=== PATIENT | female | born 1950 ===

== ENCOUNTER → 2021-05-27 | Outpatient (CLI) | payer MEDICARE | END | disposition home or self-care (01) | LOC: Rad HDHVI 10:55 | PROVIDERS: ATTEND Internal Medicine Cardiovascular Disease | DX: M47.816 Spondylosis without myelopathy or radiculopathy, lumbar region (principal); M41.86 Other forms of scoliosis, lumbar region; M51.26 Other intervertebral disc displacement, lumbar region; M48.061 Spinal stenosis, lumbar region without neurogenic claudication; I70.8 Atherosclerosis of other arteries; N28.1 Cyst of kidney, acquired | CPT/HCPCS: 72131 ==

== ENCOUNTER → 2021-06-17 | Outpatient (CLI) | payer MEDICARE ==
[~2021-06-17] VITALS: Ht 154.9 cm; Wt 51.3 kg
== END | disposition home or self-care (01) ==
LOC: Rad HDHVI 13:31
PROVIDERS: ATTEND Internal Medicine Cardiovascular Disease
DX: I34.1 Nonrheumatic mitral (valve) prolapse (principal); I73.9 Peripheral vascular disease, unspecified; I10 Essential (primary) hypertension; E78.5 Hyperlipidemia, unspecified; R07.89 Other chest pain; Z72.0 Tobacco use
CPT/HCPCS: 78452; 93017; 96374; A9500

== ENCOUNTER → 2023-02-02 | Outpatient (CLI) | payer MEDICARE | END | disposition home or self-care (01) | LOC: Rad HDHVI 08:02 | PROVIDERS: ATTEND Internal Medicine Cardiovascular Disease | DX: I10 Essential (primary) hypertension (principal); E78.5 Hyperlipidemia, unspecified | CPT/HCPCS: 93306 ==

== ENCOUNTER → 2023-02-09 | Outpatient (CLI) | payer MEDICARE ==
[~2023-02-09] VITALS: Ht 154.9 cm; Wt 51.3 kg
[~2023-02-09] MED LIST: ADENOSINE 43 MG in GIVE UN-DILUTED 0 ML IV ONE; ADENOSINE 90 MG/30 ML INJ IV ONE
== END | disposition home or self-care (01) ==
LOC: Rad HDHVI 08:04
PROVIDERS: ATTEND Internal Medicine Cardiovascular Disease
DX: I08.1 Rheumatic disorders of both mitral and tricuspid valves (principal); I10 Essential (primary) hypertension; J44.9 Chronic obstructive pulmonary disease, unspecified; E78.5 Hyperlipidemia, unspecified; F17.200 Nicotine dependence, unspecified, uncomplicated
CPT/HCPCS: 78452; 93005; 96374; 96375; A9500; J0153

== ENCOUNTER → 2023-12-16 | Outpatient (CLI) | payer MEDICARE | END | disposition home or self-care (01) | LOC: Rad HDHVI 13:29 | PROVIDERS: ATTEND Internal Medicine Cardiovascular Disease | DX: I10 Essential (primary) hypertension (principal) | CPT/HCPCS: 93880 ==

== ENCOUNTER → 2023-12-29 | Outpatient (CLI) | payer MEDICARE | END | disposition home or self-care (01) | LOC: Rad HDHVI 13:01 | PROVIDERS: ATTEND Internal Medicine Cardiovascular Disease | DX: R00.1 Bradycardia, unspecified (principal); R00.2 Palpitations | CPT/HCPCS: 93306 ==

== ENCOUNTER → 2024-05-02 | Outpatient (CLI) | payer MEDICARE ==
--- NOTE | 2024-05-02 13:21 | DVH ---
XY CHEST TWO VIEWS ROUTINE CLINICAL HISTORY: SOB COMPARISON: None TECHNIQUE: Frontal and lateral view of the chest was obtained FINDINGS: Lines and Tubes: None Lungs: No focal consolidation. Pleura: No effusion. No pneumothorax. Cardiomediastinal contours: Unremarkable Bones: No acute osseous abnormality. IMPRESSION: No acute cardiopulmonary disease.
== END | disposition home or self-care (01) ==
LOC: Rad HDHVI 10:37
PROVIDERS: ATTEND Internal Medicine Cardiovascular Disease
DX: R06.02 Shortness of breath (principal)
CPT/HCPCS: 71046

== ENCOUNTER 2024-12-26 13:56 | Outpatient (CLI) | payer MEDICARE ==
--- NOTE | 2024-12-27 12:45 | DVHSR ---
APPROVED REPORT EXAM: Two-dimensional and M-mode echocardiogram with Doppler and color Doppler. DIMENSIONS LVDd 4.1 (3.8-5.7cm) LA (2D) 2.8 (1.9-4.0cm) Aortic Root 3.3 (2.0-3.7cm) LVDs 2.6 (2.5-4.0cm) LA (MM) (1.9-4.0cm) Aortic Cusp Exc 1.8 (1.5-2.0cm) EF (%) 67.0 (55-70%) Rt. Atrium 3.3 (1.9-4.0cm) Asc. Aorta cm Mitral Valve Mitral Mitral Stenosis E wave 0.65m/s MV Mean GR. mmHg A wave 0.66m/s MV Peak GR. mmHg E/A ratio 1.0 2D MVA cm2 DECEL Time 217ms PRESS 1/2 Time 53ms IVRT ms Dop MVA 4.15cm2 Aortic Valve Aortic Valve Aortic Stenosis V1 1.12m/s AO Mean GR. 3mmHg V2 1.34m/s AO Peak GR. 7mmHg LVOT Diameter 1.7 (1.8-2.4cm) Doppler FABIÁN 1.90cm2 LEFT VENTRICLE The left ventricle is normal size. The left ventricle is normal in structure and function. The Ejection Fraction is within normal limits. The Ejection Fraction is 60-65%. RIGHT VENTRICLE The right ventricle is normal size. ATRIA The left atrial size is normal. The right atrium size is normal. The interatrial septum is intact with no evidence for an atrial septal defect. MITRAL VALVE The mitral valve is normal in structure and function. There is no mitral valve regurgitation noted. PULMONIC VALVE The pulmonic valve is not well visualized. There is mild pulmonic valvular regurgitation. TRICUSPID VALVE The tricuspid valve is grossly normal. AORTIC VALVE The aortic valve opens well. No aortic regurgitation is present. GREAT VESSELS The aortic root is normal size. PERICARDIAL EFFUSION There is no pericardial effusion. Conclusion MILD PI EF >55%
== END 2024-12-27 17:00 | disposition home or self-care (01) ==
LOC: Rad HDHVI 13:56
PROVIDERS: ATTEND Internal Medicine Cardiovascular Disease
DX: I37.1 Nonrheumatic pulmonary valve insufficiency (principal); R07.89 Other chest pain; E78.5 Hyperlipidemia, unspecified
CPT/HCPCS: 93306

== ENCOUNTER 2025-01-02 13:47 | Outpatient (CLI) | payer MEDICARE ==
[~2025-01-02] VITALS: Ht 154.9 cm; Wt 53.1 kg
== END 2025-01-02 17:00 | disposition home or self-care (01) ==
LOC: Rad HDHVI 13:47
PROVIDERS: ATTEND Internal Medicine Cardiovascular Disease
DX: R00.0 Tachycardia, unspecified (principal); R00.1 Bradycardia, unspecified; I11.0 Hypertensive heart disease with heart failure; I50.33 Acute on chronic diastolic (congestive) heart failure; I34.0 Nonrheumatic mitral (valve) insufficiency; I73.9 Peripheral vascular disease, unspecified; F17.200 Nicotine dependence, unspecified, uncomplicated; R00.2 Palpitations; J40 Bronchitis, not specified as acute or chronic; E78.00 Pure hypercholesterolemia, unspecified; J44.9 Chronic obstructive pulmonary disease, unspecified
CPT/HCPCS: 78452; 93017; A9500; 96374